=== PATIENT | female | born 1935 | race Caucasian/White ===

== ENCOUNTER → 2021-01-21 | Outpatient (REF) ==
[~2021-01-21] MED LIST: ACET65TA; BISA10SU2; BISA5TA; CITRACAL; COLA100C2; COLC0.6T; ENAL5TAB; FERR324T5; FURO20TA2; MILKSUS; NIFE30TA; NO NSAIDS; PRIL20CA; ROCA0.25; SENO8.6T5; TRAM50TA2; VIT D; XALATAN; [UNRECOGNIZED DRUG - CODE]; [UNRECOGNIZED DRUG - OTHER]; combigan; vitamin d
== END ==
LOC: M LAB REF 13:07
PROVIDERS: ATTEND Internal Medicine
DX: Z00.00 Encounter for general adult medical examination without abnormal findings (principal)